=== PATIENT | female | born 1945 | race Caucasian/White ===

== ENCOUNTER 2017-12-06 19:10 | Emergency (ER) | payer MEDICARE, OTHER ==
[2017-12-06] MEDS: IPRATROPIUM (NEB) 0.5 MG/2.5 ML AMP HHN (23:14)
[2017-12-06] MEDS: ALBUTEROL 0.083% (NEB) 2.5 MG/3 ML AMP HHN (23:14)
[2017-12-06] MEDS: HYDROCODONE/APAP (5/325) TAB PO (23:30)
[2017-12-07] MEDS: LORAZEPAM 1 MG TAB PO (00:13)
== END 2017-12-07 00:29 | disposition home or self-care (01) ==
LOC: FTE 12-07 00:29
DX: A49.9 Bacterial infection, unspecified (principal)
CPT/HCPCS: 94664; 99284-25

== ENCOUNTER 2018-02-28 23:33 | Emergency (ER) | payer MEDICARE, OTHER ==
[2018-03-01] MEDS: DIPHENHYDRAMINE 50 MG INJ IM (02:53)
== END 2018-03-01 03:00 | disposition home or self-care (01) ==
LOC: FTE 23:33
DX: G47.00 Insomnia, unspecified (principal)
CPT/HCPCS: 99284

== ENCOUNTER 2018-03-25 04:47 | Emergency (ER) | payer MEDICARE, OTHER ==
[2018-03-25] MEDS: IBUPROFEN 600 MG TAB PO (07:50)
== END 2018-03-25 07:55 | disposition home or self-care (01) ==
LOC: FTE 04:47
DX: H92.01 Otalgia, right ear (principal)
CPT/HCPCS: 99283

== ENCOUNTER 2019-03-21 21:25 | Emergency (ER) | payer MEDICARE, OTHER | END 2019-03-21 23:22 | disposition home or self-care (01) | LOC: E/R 21:25 | DX: F51.01 Primary insomnia (principal); R07.9 Chest pain, unspecified | CPT/HCPCS: 93005; 99283-25 ==